=== PATIENT | female | born 1960 | race Caucasian/White ===

== ENCOUNTER 2017-07-11 09:40 | Emergency (ER) | payer SELFPAY ==
[~2017-07-11] VITALS: Ht 154.9 cm; Wt 89.1 kg
[2017-07-11 09:43] VITALS: BP 121/84
--- NOTE | 2017-07-11 09:49 | NUR ---
Patient ambulated to bed 04.
--- NOTE | 2017-07-11 09:50 | NUR ---
PT CAME IN FOR EVALUATION KNEE PAIN 04/13 THAT HAS BEEN A MONTH , NO MEDICAL HISTIRY IN THE PAST. NO MEDICATION AT THIS TIME. PT AA/OX4.
--- NOTE | 2017-07-11 10:00 | NUR ---
PT TAKEN TO X-RAY WITH [employer] AT THIS TIME VIA W/C
--- NOTE | 2017-07-11 10:10 | NUR ---
Patient back from XRAY via wheelchair.
--- NOTE | 2017-07-11 10:49 | NUR ---
Dr. Hickey evaluating patient at bedside.
[2017-07-11] MEDS ORDERED: KETOROLAC 60 MG/2 ML VIAL IM ONE (11:00)
[2017-07-11 12:10] VITALS: BP 105/66
--- NOTE | 2017-07-11 12:10 | NUR ---
Patient discharged with v/s stable. Written and verbal after care instructions given and explained. Patient alert, oriented and verbalized understanding of instructions. Ambulatory with steady gait. All questions addressed prior to discharge. ID band removed. Patient advised to follow up with PMD. Rx of MOTRIN AND NORCO given. Patient educated on indication of medication including possible reaction and side effects. Opportunity to ask questions provided and answered.
== END 2017-07-11 12:10 | disposition home or self-care (01) ==
LOC: MED 09:40
DX: M25.561 Pain in right knee (principal); R05 Cough; J02.9 Acute pharyngitis, unspecified
CPT/HCPCS: 73562; 96372; 99284; J1885